=== PATIENT | female | born 1985 | race Caucasian/White ===

== ENCOUNTER → 2023-11-02 18:47 | Outpatient (REF) | payer OTHER, SELFPAY ==
[2023-11-05 00:55] LABS: HPV, High Risk Not Detected; HPV, High Risk Source Anal
== END ==
LOC: CLAB 18:47
PROVIDERS: ATTENDING PHYSICIAN Surgery
DX: Z86.19 Personal history of other infectious and parasitic diseases (principal)
CPT/HCPCS: 87624; 88112

== ENCOUNTER → 2023-11-26 06:55 | Outpatient (REF) | payer OTHER, SELFPAY | LOC: RAD 06:55 | PROVIDERS: ATTENDING PHYSICIAN Surgery; FAMILY PHYSICIAN Family Medicine | DX: R19.8 Other specified symptoms and signs involving the digestive system and abdomen (principal); K62.6 Ulcer of anus and rectum | CPT/HCPCS: 74270 ==

== ENCOUNTER → 2024-02-16 12:00 | Outpatient (REF) | payer OTHER, SELFPAY | LOC: CLAB 12:00 | PROVIDERS: ATTENDING PHYSICIAN Surgery | DX: R85.610 Atypical squamous cells of undetermined significance on cytologic smear of anus (ASC-US) (principal) | CPT/HCPCS: 88305 ==

== ENCOUNTER → 2024-03-02 06:24 | Day surgery (SDC) | payer OTHER, SELFPAY | LOC: GI 06:24 | PROVIDERS: ATTENDING PHYSICIAN Surgery | DX: K62.1 Rectal polyp (principal); D12.8 Benign neoplasm of rectum; K64.9 Unspecified hemorrhoids | CPT/HCPCS: 45331; 88305 ==

== ENCOUNTER 2024-07-05 06:31 | Day surgery (SDC) | payer OTHER, SELFPAY ==
[2024-07-05 07:33] VITALS: BP 128/91
[2024-07-05 07:37] VITALS: BMI 32.1
[2024-07-05 07:50] VITALS: BMI 32.1
[2024-07-05 09:12] VITALS: BP 119/90
[2024-07-05 09:15] VITALS: BP 122/88
[2024-07-05 09:30] VITALS: BP 132/87
== END 2024-07-05 09:45 | disposition home or self-care (01) ==
LOC: SDS 06:31
PROVIDERS: ATTENDING PHYSICIAN Internal Medicine Gastroenterology
DX: D12.8 Benign neoplasm of rectum (principal); K62.3 Rectal prolapse; K64.0 First degree hemorrhoids
CPT/HCPCS: 45330; 88305

== ENCOUNTER 2024-08-17 17:22 | Emergency (ER) | payer OTHER, SELFPAY ==
[2024-08-17 17:27] VITALS: BP 134/98
[2024-08-17 17:49] VITALS: BP 119/106
[2024-08-17 18:06] LABS: % Basophils 0.6 % (0-2); % Eosinophils 2.2 % (0-6); % Immature Granulocytes 0.1 % (0-0.5); % Monocytes 9.8 % (1.7-9.3); % Neutrophils 50.3 % (42.2-75.2); Absolute Basophils 0.1 10^3/uL (0-0.2); Absolute Eosinophils 0.2 10^3/uL (0-0.7); Absolute Lymphocytes 2.9 10^3/uL (1.2-3.4); Absolute Monocytes 0.8 10^3/uL (0.1-0.6); Absolute Neutrophils 3.9 10^3/uL (1.4-6.5); Hematocrit 40.8 % (37.0-47.0); Hemoglobin 14.1 g/dL (12.0-16.0); Mean Corp Hgb Conc. 34.6 g/dL (33.0-37.0); Mean Corpuscular Hgb 29.9 pg (27.0-31.0); Mean Corpuscular Volume 86.6 fL (81.0-99.0); Mean Platelet Volume 9.7 fL (7.4-10.4); Nucleated Red Blood Cells % 0 %; Platelet Count 316 10^3/uL (130-400); Red Blood Cell Count 4.71 10^6/uL (4.20-5.40); Red Cell Dist. Width 13.5 % (11.5-14.5); White Blood Cell Count 7.8 10^3/uL (4.8-10.8)
[2024-08-17 18:09] VITALS: BP 116/57
[2024-08-17 18:38] LABS: ALT (SGPT) 20 U/L (0-35); AST (SGOT) 22 U/L (14-36); Albumin 4.5 g/dl (3.5-5.0); Alkaline Phosphatase 65 U/L (38-126); Blood Urea Nitrogen 12 mg/dl (7-17); Calcium 9.5 mg/dl (8.4-10.2); Carbon Dioxide 26 mmol/L (22-30); Chloride 107 mmol/L (98-107); Glucose 105 mg/dl (70-99); Potassium 3.9 mmol/L (3.5-5.1); Sodium 140 mmol/L (135-145); Total Bilirubin 0.7 mg/dl (0.2-1.3); eGFR > 60.00
[2024-08-17 19:00] VITALS: BP 140/95
--- NOTE | 2024-08-17 19:49 | ED.GENMED ---
History of Present Illness
General
Chief Complaint: Facial Problem
Time Seen by Provider: 08/17/24 18:40
History of Present Illness
History of Present Illness:
39-year-old female presents the emergency department for evaluation of left facial droop that began approximately 4 hours prior to arrival. States she noticed that her smile was very asymmetric. Notes that she underwent a dental procedure 2 days
ago involving local anesthesia, contacted the dentist due to the symptoms and was told it was needed. She reports symptoms are dramatically improved but still has some degree of paresthesia to the face. No headache, vision changes, neck pain,
speech difficulty, or extremity paresthesias.
Review of Systems
Review of Systems
Allergies reviewed?: Yes
All Other Systems: ROS reviewed and negative except as documented in HPI and ROS
Phy Exam
Physical Exam
Physical Exam:
GEN: Well appearing, NAD, WDWN
HEENT: Oral mucosa moist, no scleral icterus, no nasal congestion
Cardiac: Regular rate
Lung: No respiratory distress, no tachypnea
MSK: No gross deformity or injuries
Skin: Good color, no pallor or jaundice, no rashes
Neuro: AO x3; CN II-XII grossly intact, however there is a subtle asymmetry of the left nasolabial fold, brow is not involved. BUE strength 5/5 in all busby, sensation intact and symmetric. BLE strength 5/5 in all busby, sensation intact and
symmetric
Psych: Calm, cooperative
Course
Orders/Labs/Results
Orders:
Orders
08/17/24 17:46
CT Head W/o Iv Contrast Urgent
Comment:
Reason For Exam: left facial droop, left fac/arm numbness
08/17/24 17:57
CMP [Comprehensive Metabolic Panel] Urgent
Complete Blood Count/With Diff Urgent
Abnormal Lab Results
08/17/24
17:57
Absolute Monos (auto) 0.8 H 10^3/uL
(0.1-0.6)
Monocytes % 9.8 H %
(1.7-9.3)
Glucose 105 H mg/dl
(70-99)
08/17/24 17:57
08/17/24 17:57
Vital Signs
Initial and Last Documented VS:
Initial Vital Signs
Temp Pulse Resp BP Pulse Ox
98.8 F 96 18 134/98 100
08/17/24 17:27 08/17/24 17:27 08/17/24 17:27 08/17/24 17:27 08/17/24 17:27
Last Documented Vital Signs
Temp Pulse Resp BP Pulse Ox
98.8 F 86 17 147/105 97
08/17/24 17:27 08/17/24 20:15 08/17/24 20:15 08/17/24 20:00 08/17/24 20:15
MDM/Problems Addressed
MDM/Problems Addressed:
Highly unlikely a 39-year-old healthy female would have micro vascular ischemia causing transient neurologic findings in the setting of cerebrovascular disease. The fact that her symptoms have almost essentially resolved also makes Phan's palsy
less likely. Unclear etiology, could have been migrainous versus delayed anesthesia effect from dental procedure. Will prescribe steroid should symptoms worsen to treated Phan's palsy, do not see any indication for admission for MRI
*Critical Care Note
Total Time (30-74mins, 75-104mins- exclusive of procedures): Not Applicable
ED Attending Note
-
Portions of this chart may have been created with voice recognition software.� Occasional wrong word or��sound alike� substitutions may have occurred due to the inherent limitations of voice recognition software.
Discharge Plan
Departure
Patient Disposition: Home (Routine Discharge)
Date of Disposition: 08/17/24
Time of Disposition: 19:49
Patient with high blood pressure during this ER visit?: No
Discharge Problem:
Facial nerve palsy
Instructions: Phan's Palsy (DC)
Prescriptions:
New
prednisone 50 mg tablet
50 mg PO DAILY 7 Days Qty: 7 0RF
No Action
desogestrel-ethinyl estradiol [Reclipsen (28)] 1 EACH tablet
1 ea PO DAILY
sertraline 100 MG tablet
200 mg PO DAILY
Referrals:
Donna Laureano, [Family Provider] -
Activity Restrictions/Additional Instructions:
Only begin the steroids if your symptoms re-occur tomorrow
Follow up with your primary doctor for a brain MRI if your symptoms seem to wax and wane or if they re-occur
Interventions
Interventions:
*Risk Screen - Suicide Last Done: 08/17/24 17:27
*General Assessment Last Done: 08/17/24 17:53
*Neglect/Abuse Screening Last Done: 08/17/24 17:55
*ED- Fall Risk Assessment Last Done: 08/17/24 17:53
*ED COVID-19 Vaccine History Last Done: 08/17/24 17:53
*Nursing Disposition Last Done: 08/17/24 20:23
ED- Neurological Assessment Last Done: 08/17/24 17:53
ED-Skin Assessment Last Done: 08/17/24 17:53
Discharge Date and Time
Discharge Date/Time: 08/17/24 20:23
Print Language: ROMANSH
[2024-08-17 20:00] VITALS: BP 147/105
== END 2024-08-17 20:23 | disposition home or self-care (01) ==
LOC: EMR 17:22
PROVIDERS: EMERGENCY PHYSICIAN Emergency Medicine; FAMILY PHYSICIAN Family Medicine
DX: G51.0 Bell's palsy (principal)
CPT/HCPCS: 99284; 70450; 80053; 85025

== ENCOUNTER 2025-01-17 17:54 | Emergency (ER) | payer OTHER, SELFPAY ==
[2025-01-17 17:55] VITALS: BP 140/95
[2025-01-17 18:22] LABS: Hematocrit 42.7 % (37.0-47.0); Hemoglobin 13.9 g/dL (12.0-16.0); Mean Corp Hgb Conc. 32.6 g/dL (33.0-37.0); Mean Corpuscular Volume 89.3 fL (81.0-99.0); Nucleated Red Blood Cells % 0 %; Platelet Count 326 10^3/uL (130-400); Red Cell Dist. Width 12.5 % (11.5-14.5)
[2025-01-17 18:46] LABS: HCG, Serum Qualitative Screen Negative
[2025-01-17 18:48] LABS: ALT (SGPT) 23 U/L (0-35); AST (SGOT) 21 U/L (14-36); Albumin 4.5 g/dl (3.5-5.0); Alkaline Phosphatase 69 U/L (38-126); Blood Urea Nitrogen 10 mg/dl (7-17); Calcium 9.5 mg/dl (8.4-10.2); Carbon Dioxide 29 mmol/L (22-30); Chloride 104 mmol/L (98-107); Glucose 107 mg/dl (70-99); Lipase 102 U/L (23-300); Potassium 3.8 mmol/L (3.5-5.1); Sodium 139 mmol/L (135-145); Total Protein 7.8 g/dl (6.3-8.2); eGFR > 60.00
[2025-01-17 22:05] VITALS: BP 139/93
[2025-01-17 22:10] VITALS: BMI 32.1
[2025-01-18 00:21] VITALS: BP 131/90
--- NOTE | 2025-01-18 00:22 | ED.GENMED ---
History of Present Illness
General
Chief Complaint: Abdominal Pain
Source: patient
Exam Limitations: none
Time Seen by Provider: 01/17/25 22:34
Nursing documentation reviewed up to this point in time: agreed with
History of Present Illness
History of Present Illness:
Note:
CHIEF COMPLAINT(S)
Right upper quadrant abdominal pain.
HISTORY OF PRESENT ILLNESS
The patient is a 39-year-old male presenting with a two-week history of right upper quadrant abdominal pain. He describes the pain as 'gnawing,' with radiation to the right shoulder and lower back. Previously, he experienced similar pain that
resolved on its own, but this episode is persistent and has not resolved. The pain worsens after eating and becomes more intense at night. Additionally, the patient reports pale stools but denies constipation. He mentions increased flatulence but no
recent history of fever, chills, nausea, or vomiting, although he felt body aches and thought he might have had a fever earlier.
The patient had been evaluated by a vp talent management in the past for similar pain and was found to have gallstones without current inflammation or jaundice. He was advised to see a surgeon if episodes persisted. This is the longest duration the
pain has persisted. There are no reports of chest pain or shortness of breath.
PAST MEDICAL AND SURGICAL HISTORY
The patient reports a past medical history of gallstones.
SOCIAL HISTORY
The patient reports taking acid reflux medication and Zoloft (sertraline). Specific social history regarding lifestyle factors such as smoking, alcohol, or drug use is not provided.
MEDICATIONS
The patient is currently taking sertraline (Zoloft) for depression and an unspecified acid reflux medication, possibly Nexium (esomeprazole).
PHYSICAL EXAM
General: Alert, no acute distress.
Skin: Warm, dry.
Head: Normocephalic, atraumatic.
Neck: Supple, trachea midline.
Eye, Ears, Nose, Mouth, and Throat: Oral mucosa moist.
Cardiovascular: Normal peripheral perfusion, no edema.
Respiratory: Respirations are non-labored.
Gastrointestinal: Abdomen shows tenderness particularly in the right upper quadrant; nondistended.
Back: Normal range of motion, normal alignment.
Musculoskeletal: Normal range of motion, normal strength.
Neurological: Alert and oriented to person, place, time, and situation, no focal neurological deficit observed.
Psychiatric: Cooperative, appropriate mood & affect.
PLAN
The plan is to administer intravenous fluids to the patient for hydration and symptomatic relief, continuing monitoring and evaluation for changes in the patients condition. Further gastrointestinal evaluation for gallstones and possible surgical
intervention may be considered if symptoms persist.
DIFFERENTIAL DIAGNOSIS
The Differential Diagnosis includes, in no particular order and is not limited to:
1. Biliary colic
2. Acute cholecystitis no evidence ultrasound
3. Gallstone pancreatitis
4. Peptic ulcer disease
5. Gastroesophageal reflux disease
6. Hepatitis
7. Acute pancreatitis
8. Right renal colic
9. Gastrointestinal malignancy
10. Muscle strain or referred pain.
Disposition:
SUMMARY OF ENCOUNTER
The patient, a 39-year-old female, presented with right upper quadrant abdominal pain. Upon examination, there was negative [place] sign and no rebound tenderness. An ultrasound showed no signs of cholelithiasis or cholecystitis. Lab work returned
normal. The patients pain improved during the visit.
DISPOSITION
Patient will be discharged home.
ASSESSMENT
Biliary colic.
PLAN
The patient will be monitored for further symptoms and recommended to follow up with general surgery.
FOLLOW-UP INSTRUCTIONS
Follow up with general surgery.
MEDICAL DECISION MAKING
- Complexity of Data Reviewed: Chronic conditions affecting care are not explicitly mentioned. Differential diagnosis considerations included biliary colic, acute cholecystitis, gallstone pancreatitis, and uncomplicated gallstones.
- Data:
Category 1: Tests reviewed included an abdominal ultrasound and lab work, both of which returned normal findings.
DIAGNOSIS
Biliary colic (ICD-10 K80.80).
Phy Exam
Physical Exam
Physical Exam:
.
Course
Orders/Labs/Results
Orders:
Orders
01/17/25 17:57
Test Result ONCE
01/17/25 18:03
Complete Blood Count/With Diff Urgent
Comprehensive Metabolic Panel Urgent
HCG, Serum Qualitative Screen Urgent
Lipase Urgent
01/17/25 22:37
US Abdomen Complete/Upper Urgent
Comment:
Reason For Exam: RUQ abd pain
Abnormal Lab Results
01/17/25
18:03
MCHC 32.6 L g/dL
(33.0-37.0)
Absolute Monos (auto) 0.7 H 10^3/uL
(0.1-0.6)
Monocytes % 10.2 H %
(1.7-9.3)
Glucose 107 H mg/dl
(70-99)
01/17/25 18:03
01/17/25 18:03
Vital Signs
Initial and Last Documented VS:
Initial Vital Signs
Temp Pulse Resp BP Pulse Ox
98 F 97 16 140/95 100
01/17/25 17:55 01/17/25 17:55 01/17/25 17:55 01/17/25 17:55 01/17/25 17:55
Last Documented Vital Signs
Temp Pulse Resp BP Pulse Ox
98.4 F 97 20 131/90 100
01/18/25 00:21 01/17/25 17:55 01/18/25 00:21 01/18/25 00:21 01/18/25 00:23
*Radiology
Radiology exam reviewed: radiology read reviewed
*Pulse Oximetry
SaO2: 100
Oxygen Mode of Delivery: Room air
Patient hypoxic: no
*Critical Care Note
Total Time (30-74mins, 75-104mins- exclusive of procedures): Not Applicable
Update Note
Update Note:
NAME: DYANA MANN
DATE OF EXAM: 01/17/2025
Patient No: [id number]
Physician: RAI^Yuan
Date of : 1985
Past Medical History (entered by Technologist):
Reason For Exam (entered by Technologist):
Other Notes (entered by Technologist):
Additional Information (per [facility] Radiologist): Right upper quadrant pain
Ultrasound abdomen complete
IMPRESSION:
No acute findings
cholelithiasis without clear secondary findings to suggest cholecystitis
Stone filled gallbladder
No gallbladder wall thickening or appreciable pericholecystic fluid
negative sonographic Guerra's sign per report
No bile duct dilation. Visualized CBD measures 5 mm in diameter which is within normal limits
Diffuse increased hepatic echogenicity suggesting steatosis
Splenomegaly. Spleen measuring up to 15 cm
Nonspecific.
Suggest clinical follow-up
Bilateral kidneys appear normal
Case finalized on 01/17/25 23:23 EDT
Bobby Narayan M.D.
This report has been electronically signed and verified by the Radiologist whose name is printed above.
ED Attending Note
-
Portions of this chart may have been created with voice recognition software.� Occasional wrong word or��sound alike� substitutions may have occurred due to the inherent limitations of voice recognition software.
Discharge Plan
Departure
Patient Disposition: Home (Routine Discharge)
Date of Disposition: 01/18/25
Time of Disposition: 00:28
Patient with high blood pressure during this ER visit?: Yes
Condition: Good
Discharge Problem:
Biliary colic
Instructions: Gallstones (DC), Abdominal Pain
Prescriptions:
No Action
desogestrel-ethinyl estradiol [Reclipsen (28)] 1 EACH tablet
1 ea PO DAILY
sertraline 100 MG tablet
200 mg PO DAILY
prednisone 50 mg tablet
50 mg PO DAILY 7 Days Qty: 7 0RF
Referrals:
Donna Laureano DO [Family Provider, Family Practice]
Luke Huerta MD [Active, Surgical] - Call in 1-3 days for appt
Activity Restrictions/Additional Instructions:
Thank You for choosing [facility].
It was a pleasure meeting you and taking part in your care. We hope for your continued healing and wellness.
Please read discharge instructions in their entirety. However, they are for general education and may not describe your exact diagnosis at discharge. Information on your ER visit and medical conditions were discussed with you along with appropriate
follow up information...
If indicated, please take your medications as instructed and indicated on discharge paperwork.
Please schedule a follow up appointment as directed. Call to schedule an appointment
Please return to the emergency department with ANY change in, persisting, or worsening of symptoms. If any of your symptoms do not improve, or persist, or become more severe within 6-12 hours, please return to the emergency department for further
care.
Please return to the emergency department if you develop a headache, neck pain/stiffness, fever greater than 100.4F, chest pain, shortness of breath, persistent nausea, vomiting, slurred speech, difficulty walking, numbness/tingling, weakness, signs
of infection or any other symptoms that are worrisome to you.
If you have any questions or concerns please do not hesitate to call the Hospital at .
Interventions
Interventions:
*Risk Screen - Suicide Last Done: 01/17/25 17:57
*General Assessment Last Done: 01/17/25 22:08
*Neglect/Abuse Screening Last Done: 01/17/25 17:57
*ED- Fall Risk Assessment Last Done: 01/17/25 22:08
*ED COVID-19 Vaccine History Last Done: 01/17/25 22:07
*ED Influenza Vaccine History Last Done: 01/17/25 22:08
*Nursing Disposition Last Done: 01/18/25 00:35
XF-Ifrnim-Kwtbayyzsz Assessment Last Done: 01/17/25 22:05
Discharge Date and Time
Discharge Date/Time: 01/18/25 00:36
Print Language: [place]LAND[place]
== END 2025-01-18 00:36 | disposition home or self-care (01) ==
LOC: EMR 17:54
PROVIDERS: Emergency Medicine; EMERGENCY PHYSICIAN Student in an Organized Health Care Education/Training Program; FAMILY PHYSICIAN Family Medicine
DX: K80.21 Calculus of gallbladder without cholecystitis with obstruction (principal); R03.0 Elevated blood-pressure reading, without diagnosis of hypertension; F32.A Depression, unspecified
CPT/HCPCS: 99284; 76700; 80053; 83690; 84703; 85025

== ENCOUNTER 2025-02-13 10:17 | Emergency (ER) | payer OTHER, SELFPAY ==
[2025-02-13 10:32] VITALS: BP 121/79
[2025-02-13 10:53] VITALS: BP 108/66
[2025-02-13] MEDS: NSS 1000 IV (11:16)
[2025-02-13] MEDS: ZOFRAN 4 MG IV (11:16)
[2025-02-13] MEDS: PEPCID 20 MG IV (11:16)
[2025-02-13] MEDS: ADRENALIN 0.3 MG IM (11:17)
--- NOTE | 2025-02-13 11:25 | ED.GENMED ---
History of Present Illness
General
Chief Complaint: Allergic Reaction
Source: patient
Exam Limitations: none
Time Seen by Provider: 02/13/25 10:56
Nursing documentation reviewed up to this point in time: agreed with
History of Present Illness
History of Present Illness:
The patient is a 40-year-old female who presents with complaints of rash and swelling. The symptoms began early yesterday morning with a rash starting in the groin area, then spreading to the armpits, and eventually affecting the entire body,
including palpable bumps on the head and swelling of the eyelids and feet. The patient went to yesterday and received Pepcid, a steroid injection that led to an adverse reaction characterized by feeling hot, nausea, ear ringing, and subsequent
brief syncope, during which she was given oxygen. She was prescribed a methylprednisolone dose pack, which she began today. Today, she woke today with significant lip swelling. 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 She feels the rash and itching are getting
worse. Her lip swelling is much improved. The patient denies swelling in throat or tongue, there is no associated CP or shortness of breath, although the patient describes a funny feeling possibly related to anxiety. The patient also reports mild
nausea.
Denies any new medications, zxdn-bhr-vejomnu drugs, or exposures to new foods, detergents, or soaps, etc
Past History
Past History
ED Past Medical History: Asthma, GERD and Psychiatric (anxiety)
ED Past Surgical History: Tonsilectomy
Social History
Tobacco: Non-smoker
Alcohol: None
Personal:
Living: with family
Employment: Employed
Review of Systems
Review of Systems
Allergies reviewed?: Yes
All Other Systems: ROS reviewed and negative except as documented in HPI and ROS
Constitutional: Denies fever or chills
EENT: Reports other (lip swelling much improved); Denies sore throat
Respiratory: Denies trouble breathing
Cardiac: Denies chest pain
ABD/GI: Reports nausea; Denies abdominal pain, vomiting or diarrhea
Musculoskeletal: Reports no symptoms
Skin: Reports rash
Neurological: Reports no symptoms
Phy Exam
Physical Exam
Physical Exam:
GENERAL: No acute distress. A&Ox3.
CONSTITUTIONAL: Afebrile.
EYES: clear, conjunctivae normal
ENMT: moist mucus membranes, Pharynx nl, minimal lip swelling. Tongue normal appearing
RESPIRATORY: Regular respirations, nonlabored, lungs clear.
CARDIOVASCULAR: Regular rate and rhythm, no murmurs, no rubs.
GI: Soft, nontender, normal BS
MUSCULOSKELETAL: Moves with ease. Well perfused.
SKIN: Warm, dry, pink. Widespread urticarial rash/hives.
PSYCH: Normal mood and affect. Well kept, interactive and appropriate
NEUROLOGIC: Awake, alert and oriented. No focal neurological deficits
Course
Orders/Labs/Results
Orders:
Orders
02/13/25 11:04
EPINEPHrine PF [Adrenalin] 0.3 mg IM NOW STA
Famotidine [Pepcid] 20 mg IV NOW STA
Ondansetron Injectable [Zofran] 4 mg IV NOW STA
02/13/25 11:05
0.9% Sodium Chloride 1000 ml [Nss] 1,000 ml IV BOLUS
Vital Signs
Initial and Last Documented VS:
Initial Vital Signs
Temp Pulse BP Pulse Ox
97.7 F 118 121/79 99
02/13/25 10:32 02/13/25 10:32 02/13/25 10:32 02/13/25 10:32
Last Documented Vital Signs
Temp Pulse Resp BP Pulse Ox
98.0 F 110 16 114/62 100
02/13/25 10:37 02/13/25 12:00 02/13/25 12:33 02/13/25 12:33 02/13/25 12:33
MDM/Problems Addressed
Differential Diagnosis Includes:
allergic reaction, anaphylaxis, autoimmune urticaria, idiopathic urticaria, viral exanthem, angioedema
MDM/Problems Addressed:
The patient is a 40-year-old female who presents with complaints of rash and swelling. The symptoms began early yesterday morning with a rash starting in the groin area, then spreading to the armpits, and eventually affecting the entire body,
including palpable bumps on the head and swelling of the eyelids and feet. The patient went to yesterday and received Pepcid, a steroid injection that led to an adverse reaction characterized by feeling hot, nausea, ear ringing, and subsequent
brief syncope, during which she was given oxygen. She was prescribed a methylprednisolone dose pack, which she began today. Today, she woke today with significant lip swelling. 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 She feels the rash and itching are getting
worse. Her lip swelling is much improved. The patient denies swelling in throat or tongue, there is no associated CP or shortness of breath, although the patient describes a funny feeling possibly related to anxiety. The patient also reports mild
nausea.
Denies any new medications, eofv-ibx-caojxgw drugs, or exposures to new foods, detergents, or soaps, etc
Afebrile, NAD
12:50 p.m.
After Epi, IVFs and Pepcid IV, Pt rash much improved, feeling better
Stable for discharge, Continue Prednisone taper, Pepcid, Benadryl prn
*Pulse Oximetry
SaO2: 96
Oxygen Mode of Delivery: Room air
Patient hypoxic: no
*Critical Care Note
Total Time (30-74mins, 75-104mins- exclusive of procedures): Not Applicable
ED Attending Note
-
Portions of this chart may have been created with voice recognition software.� Occasional wrong word or��sound alike� substitutions may have occurred due to the inherent limitations of voice recognition software.
Discharge Plan
Departure
Patient Disposition: Home (Routine Discharge)
Date of Disposition: 02/13/25
Time of Disposition: 12:49
Patient with high blood pressure during this ER visit?: No
Condition: Good
Discharge Problem:
Angioedema, Urticaria of entire body
Instructions: Hives, Angioedema
Prescriptions:
No Action
desogestrel-ethinyl estradiol [Reclipsen (28)] 1 EACH tablet
1 ea PO DAILY
sertraline 100 MG tablet
200 mg PO DAILY
prednisone 50 mg tablet
50 mg PO DAILY 7 Days Qty: 7 0RF
Referrals:
Donna Laureano DO [Family Provider, Family Practice] - Follow up in 2-3 days
Activity Restrictions/Additional Instructions:
As we discussed, continue the steroid taper.
Benadryl as needed for itching, swelling
Return here immediately for swelling of throat, tongue, lips, worsening rash, fever or feeling worse in any way.
Interventions
Interventions:
*Risk Screen - Suicide Last Done: 02/13/25 10:39
*General Assessment Last Done: 02/13/25 10:37
*Neglect/Abuse Screening Last Done: 02/13/25 10:39
*ED- Fall Risk Assessment Last Done: 02/13/25 10:39
*ED COVID-19 Vaccine History Last Done: 02/13/25 10:39
*ED Influenza Vaccine History Last Done: 02/13/25 10:39
*Nursing Disposition Last Done: 02/13/25 13:04
ED- Cardiac Assessment Last Done: 02/13/25 10:55
ED- Pulmonary Assessment Last Done: 02/13/25 10:55
ED-Skin Assessment Last Done: 02/13/25 10:55
Discharge Date and Time
Discharge Date/Time: 02/13/25 13:04
Print Language: WELSH
[2025-02-13 12:33] VITALS: BP 114/62
== END 2025-02-13 13:04 | disposition home or self-care (01) ==
LOC: EMR 10:17
PROVIDERS: EMERGENCY PHYSICIAN Emergency Medicine; FAMILY PHYSICIAN Family Medicine
DX: T78.3XXA Angioneurotic edema, initial encounter (principal); Y92.9 Unspecified place or not applicable; F41.9 Anxiety disorder, unspecified; J45.909 Unspecified asthma, uncomplicated; K21.9 Gastro-esophageal reflux disease without esophagitis; Z79.52 Long term (current) use of systemic steroids
CPT/HCPCS: 99282; 96374; 96375; 96372; 96361